=== PATIENT | male | born 1990 ===

== ENCOUNTER 2023-03-13 10:57 | Inpatient (IN) | payer SELFPAY ==
[2023-03-13] VITALS (10 sets, daily range): BP systolic 106–141; BP diastolic 48–87; PULSE 72–90; RESP 12–19; TEMP 36.7–37.2; O2SAT 96–98; BMI 21.9
[2023-03-13 11:49] LABS: Basophils % 0.2 %; Hematocrit 53.7 % (42.0-52.0); Hemoglobin 18.7 g/dL (11.7-16.6); Lymphocytes # 1.3 10^3/uL (0.8-4.8); Lymphocytes % 7.3 %; Mean Corpuscular HGB Conc 34.8 g/dL (30.0-36.0); Mean Corpuscular Hemoglobin 30.9 pg (28.0-34.0); Mean Corpuscular Volume 88.6 fl (80-94); Monocytes # 1.3 10^3/uL (0.2-0.9); Monocytes % 7.3 %; Neutrophils # 14.84 10^3/uL (1.8-7.7); Neutrophils % 84.5 %; Nucleated Red Blood Cells % 0 %; Platelet Count 449 10^3/cmm (130-400); Red Blood Count 6.06 10^6/uL (4.1-5.3); Red Cell Distribution Width 12.5 % (12.1-15.1); White Blood Count 17.6 10^3/uL (4.0-10.0)
[2023-03-13 12:05] LABS: Alanine Aminotransferase 26 U/L (0-41); Albumin Level 5.8 g/dL (3.5-5.2); Alkaline Phosphatase 83 U/L (40-130); Anion Gap 33.6 (5-19); Aspartate Amino Transferase 20 U/L (0-40); Blood Urea Nitrogen 40 mg/dL (6-20); Calcium 10.8 mg/dL (8.5-10.5); Carbon Dioxide 26 mmol/L (22-29); Chloride 83 mmol/L (98-107); Globulin 4.8 g/dL (1.3-4.6); Glomerular Filtration Rate 12.9 mL/min (90-130); Glucose 137 mg/dL (65-115); Osmolality Calculated 298 mOsm/kg (285-295); Potassium 4.6 mmol/L (3.5-5.1); Sodium 138 mmol/L (136-145); Total Bilirubin 0.7 mg/dL (0.15-1.2); Total Protein 10.6 g/dL (6.6-8.7)
--- NOTE | 2023-03-13 12:05 | ED_ITS ---
HPI - Nausea/Vomiting/Diarrhea General: Chief complaint: ER Hold Stated complaint: weakness, n/v Time Seen by Provider: 03/13/23 11:48 Source: patient Mode of arrival: ambulatory History of Present Illness: 32-year-old male presents emergency room complaining of dehydration . Chest Pain Coordinator line was used to communicate with the patient. He states he has not urinated or drink anything since last evening this morning he was at work it was felt like it was hot outside he said persistent nausea and vomiting. [facility] emergency room for same he denies hematochezia melena hematemesis coffee-ground emesis no dysuria urgency frequency denies chest pain mild epigastric discomfort intermittently. MD elicited complaint: nausea and vomiting Onset (ago): hour(s) Description of vomiting: watery Associated nausea: Yes Associated abdominal pain: Yes Location of pain: Epigastric Severity: mild Quality: cramping Exacerbating factors: none Relieving factors: none Associated symtoms: Reports fatigue, anorexia and nausea; Denies altered mental status, anxiety, bloating, change in vision, chest pain, cough, diaphoresis, decreased urine output, dizziness, dysuria, epistaxis, fecal incontinence, fevers/chills, headache(s), malaise, myalgias, numbness, palpitations, rash, short of breath, syncope, tenesmus, tinnitus or weakness Review of Systems Const: Reports: fatigue; Denies: malaise or diaphoresis Eyes: Denies: change in vision ENMT: Denies: tinnitus or epistaxis Card: Denies: chest pain, palpitations or syncope Resp: Denies: dyspnea, productive cough or non-productive cough GI: Reports: abdominal pain, nausea and vomiting; Denies: bloating or fecal incontinence : Denies: dysuria, urinary frequency or urinary urgency Skin/Breast: Denies: rash or pruritus Neuro: Denies: headache(s) or dizziness Psych: Denies: anxiety Physical Exam Const: EXAM LIMITATIONS: no altered mental status GENERAL APPEARANCE: cooperative and comfortable ORIENTATION/CONSCIOUSNESS: Yes awake, Yes oriented to person, Yes oriented to place and Yes oriented to time HENMT: COMMON NORMALS: normocephalic, atraumatic and hearing grossly normal bilaterally HEAD & SCALP: normocephalic and atraumatic Resp: COMMON NORMALS: normal respiratory effort, No retractions, No use of accessory muscles and clear to auscultation bilaterally AUSCULTATION: clear to auscultation bilaterally Cardio: COMMON NORMALS: regular rate, regular rhythm and No murmurs present (Cardio) RATE: regular rate RHYTHM: regular rhythm GI: COMMON NORMALS: Soft to palpation and No hepatosplenomegaly present AUSCULTATION: Yes normoactive bowel sounds PALPATION: Yes Soft to palpation, No Tenderness to palpation present (GI), No Guarding due to palpation present (GI) and Yes No hepatosplenomegaly present Extremity: COMMON NORMALS: normal to inspection, capillary refill normal, no clubbing, cyanosis or edema, no calf tenderness and no pedal edema Neuro: SENSORIUM/ORIENTATION: Yes oriented to person, Yes oriented to place and Yes oriented to time Skin: COMMON NORMALS: no rashes or lesions noted GENERAL SKIN EXAM: no rashes or lesions noted Course Vital Signs: Vital signs: Vital Signs Temperature 98.0 F 03/13/23 11:25 Pulse Rate 72 03/13/23 14:01 Respiratory Rate 16 03/13/23 14:01 Blood Pressure 128/86 03/13/23 14:01 Pulse Oximetry 97 03/13/23 14:01 Oxygen Delivery Me thod Room Air 03/13/23 14:01 MDM - Nausea/Vomiting/Diarrhea Medical Decision Making Acute kidney injury due to severe volume depletion. Patient given fluid boluses in the ER 2 L x 2 and then started on continuous hydration at 150 an hour normal saline. Potassium is stable discussed with hospitalist will admit. Medical Records I reviewed the patient's medical records. Lab Data I reviewed the patient's lab results. 03/13/23 11:30 03/13/23 11:30 Laboratory Results WBC 17.6 10^3/uL (4.0-10.0) H 03/13/23 11:30 RBC 6.06 10^6/uL (4.1-5.3) H 03/13/23 11:30 Hgb 18.7 g/dL (11.7-16.6) H 03/13/23 11:30 Hct 53.7 % (42.0-52.0) H 03/13/23 11:30 MCV 88.6 fl (80-94) 03/13/23 11:30 MCH 30.9 pg (28.0-34.0) 03/13/23 11:30 MCHC 34.8 g/dL (30.0-36.0) 03/13/23 11:30 RDW 12.5 % (12.1-15.1) 03/13/23 11:30 Plt Count 449 10^3/cmm (130-400) H 03/13/23 11:30 MPV 9.0 fL (7.4-10.4) 03/13/23 11:30 Neut % (Auto) 84.5 % 03/13/23 11:30 Lymph % (Auto) 7.3 % 03/13/23 11:30 Stephens % (Auto) 7.3 % 03/13/23 11:30 Eos % (Auto) 0.0 % 03/13/23 11:30 Baso % (Auto) 0.2 % 03/13/23 11:30 Neut # (Auto) 14.84 10^3/uL (1.8-7.7) H 03/13/23 11:30 Lymph # (Auto) 1.3 10^3/uL (0.8-4.8) 03/13/23 11:30 Stephens # (Auto) 1.3 10^3/uL (0.2-0.9) H 03/13/23 11:30 Eos # (Auto) 0.0 10^3/uL (0.0-0.8) 03/13/23 11:30 Baso # (Auto) 0.0 10^3/uL (0.0-0.1) 03/13/23 11:30 Nucleated RBC % (auto) 0 % 03/13/23 11:30 Nucleated RBCs # 0.0 /100WBC 03/13/23 11:30 Sodium 138 mmol/L (136-145) 03/13/23 11:30 Potassium 4.6 mmol/L (3.5-5.1) 03/13/23 11:30 Chloride 83 mmol/L (98-107) L 03/13/23 11:30 Carbon Dioxide 26 mmol/L (22-29) 03/13/23 11:30 Anion Gap 33.6 (5-19) H 03/13/23 11:30 BUN 40 mg/dL (6-20) H 03/13/23 11:30 Creatinine 5.2 mg/dL (0.7-1.2) H 03/13/23 11:30 GFR Calculation 12.9 mL/min (90-130) L 03/13/23 11:30 Glucose 137 mg/dL (65-115) H 03/13/23 11:30 Calculated Osmolality 298 mOsm/kg (285-295) H 03/13/23 11:30 Calcium 10.8 mg/dL (8.5-10.5) H 03/13/23 11:30 Total Bilirubin 0.7 mg/dL (0.15-1.2) 03/13/23 11:30 AST 20 U/L (0-40) 03/13/23 11:30 ALT 26 U/L (0-41) 03/13/23 11:30 Alkaline Phosphatase 83 U/L (40-130) 03/13/23 11:30 Total Protein 10.6 g/dL (6.6-8.7) H 03/13/23 11:30 Albumin 5.8 g/dL (3.5-5.2) H 03/13/23 11:30 Globulin 4.8 g/dL (1.3-4.6) H 03/13/23 11:30 Lipase 513 U/L (13-60) H 03/13/23 11:30 Discharge Plan Discharge Patient Disposition: Admitted As Inpatient Admit Provider: Paul Ji Clinical Impression: Acute kidney injury, Volume depletion Condition: Stable Coding Level of Care Code ED Clinical Research Management Associate for Lorenzo Bucio
[2023-03-13 12:26] LABS: Lipase 513 U/L (13-60)
[2023-03-13] MEDS: sodium chloride 0.9% 1,000 ML 999 ML IV ×2 (12:48→13:58)
[2023-03-13] MEDS: ondansetron 2 mg/ML SDV 2 mL 4 MG IVP (12:48)
[2023-03-13] MEDS: sodium chloride 0.9% 1,905.09 ML 1905.09 ML IV (15:50)
--- NOTE | 2023-03-13 16:21 | US_ITS ---
WS: [id number] ULTRASOUND RENAL TECHNIQUE: Ultrasound examination of both kidneys. CLINICAL INFORMATION: [facility] COMPARISON: None. FINDINGS: RIGHT: Right kidney is normal in size and appearance. Echogenicity: Normal. Cortical thickness: 1.2 cm; Normal. Hydronephrosis: None. Perinephric fluid: None. Right kidney measures: 11.6 cm x 5.0 cm x 4.5 cm. LEFT: Left kidney is normal in size and appearance. Echogenicity: Normal. Cortical thickness: 1.5 cm; Normal. Hydronephrosis: None. Perinephric fluid: None. Left kidney measures: 9.8 cm x 5.0 cm x 4.3 cm. Normal visualized aorta. US/US renal BI* [id number] IMPRESSION: 1. No hydronephrosis in either kidney. 2. Kidney is normal in appearance. 3. Bladder is decompressed.
--- NOTE | 2023-03-13 16:24 | P.HP_ITS ---
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 Patient was started on bolus IV fluid in the ER. Review of Systems General: Reports: 10 or more systems reviewed and unremarkable except in HPI and below Const: Denies: fever(s), chills, body aches, change in appetite or diaphoresis Card: Denies: palpitations, edema, swelling of feet/ankles, dyspnea on exertion, orthopnea or leg pain with exertion Resp: Denies: dyspnea, productive cough, wheezing or pain on inspiration GI: Reports: abdominal pain, nausea and vomiting; Denies: diarrhea or constipation : Denies: flank pain or difficulty urinating Musc: Denies: back pain, extremity pain or extremity swelling Neuro: Denies: headache(s), difficulty walking or confusion Medications/Allergies Home Medications Medication Instructions Recorded Confirmed Last Taken Type No Known Home Medications 03/13/23 03/13/23 Unknown History Allergies Allergy/AdvReac Type Severity Reaction Status Date / Time No Known Allergies Allergy Verified 03/13/23 11:25 Vitals/I&O/Wt Last Vital Signs Temp 98.4 F 03/13/23 15:56 Pulse 74 03/13/23 15:52 Resp 16 03/13/23 15:52 BP 117/71 03/13/23 15:52 Pulse Ox 97 03/13/23 15:52 O2 Del Method Room Air 03/13/23 15:52 03/13/23 03/13/23 03/13/23 06:59 14:59 22:59 Intake Total 1000 / 1000 Balance 1000 / 1000 Weight last 48 hrs Weight 63.503 kg Physical Exam Const: COMMON NORMALS: patient oriented x3 HENMT: COMMON NORMALS: normocephalic and atraumatic HEAD & SCALP: normocephalic and atraumatic Resp: COMMON NORMALS: clear to auscultation bilaterally AUSCULTATION: clear to auscultation bilaterally Cardio: COMMON NORMALS: regular rate, regular rhythm, S1 normal heart sound present, S2 normal heart sound present, No gallops present (Cardio), No murmurs present (Cardio), No rub (Cardio) and Peripheral pulses 2+ throughout RATE: regular rate RHYTHM: regular rhythm HEART SOUNDS: S1 normal heart sound present and S2 normal heart sound present PERIPHERAL PULSES: Peripheral pulses 2+ throughout GI: COMMON NORMALS: Normal to inspection, nondistended, normoactive bowel sounds present, Soft to palpation, non-tender, No hepatosplenomegaly present and no masses AUSCULTATION: Yes normoactive bowel sounds PALPATION: Yes Soft t o palpation and Yes No hepatosplenomegaly present RECTAL EXAM: Yes deferred : COMMON NORMALS: Yes no CVA tenderness BLADDER/KIDNEY EXAM: Yes no CVA tenderness Back/Pelvis: COMMON NORMALS: no CVA tenderness Extremity: COMMON NORMALS: no clubbing, cyanosis or edema and no pedal edema Neuro: COMMON NORMALS: patient oriented x3 Data 03/13/23 11:30 03/13/23 11:30 A&P Assessment and plan (1) Acute renal failure: (2) Dehydration: (3) Leukocytosis: (4) Elevated lipase: Plan 32 year old male with no significant past medical history came in today with chief complaint of left upper quadrant mild abdominal discomfort nausea vomiting, no urine output since yesterday night, 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 Assessment: Acute kidney injury : Likely prerenal DILLON secondary to severe dehydration. Follow renal ultrasound Random urine sodium Random urine creatinine Random urine total protein FENA UPCR Urinalysis Monitor intake output charting Avoid nephrotoxic's Monitor BMP Currently on aggressive IV hydration with normal saline 150 cc an hour Initial plan was to place Polanco catheter, but patient is currently wants to avoid Polanco catheter. Increased anion gap metabolic acidosis: Secondary to acute kidney injury Continue IV hydration Monitor BMP Leukocytosis: Monitor CBC for now Dehydration: Continue IV fluids Elevated lipase: Follow repeat lipase Possible CT abdomen and pelvis without contrast CODE STATUS: Full code DVT prophylaxis on subcu heparin Attestations Medical Necessity Statement*: Patient is to be in hospital management D[facility]. Anticipated length of stay greater THEN 2 midnightS Coding Level of Care Code Acute Code for Chg Fwd Diagnoses Acute renal failure N17.9 Dehydration E86.0 Leukocytosis D72.829 Elevated lipase R74.8
[2023-03-13] MEDS: sodium chloride 0.9% 1,000 ML 150 ML IV (17:50)
[2023-03-13] MEDS: heparin 5,000 unit/mL INJ 1 mL 5000 UNIT SUBCUT (17:51)
[2023-03-14] VITALS: BP 110/54; PULSE 64; RESP 16; TEMP 36.9; O2SAT 96
[2023-03-14] MEDS: sodium chloride 0.9% 1,000 ML 150 ML IV ×2 (00:14→07:00)
[2023-03-14 04:30] LABS: Basophils % 0.3 %; Eosinophils # 0.1 10^3/uL (0.0-0.8); Eosinophils % 0.5 %; Hematocrit 40.5 % (42.0-52.0); Hemoglobin 13.4 g/dL (11.7-16.6); Lymphocytes # 3.9 10^3/uL (0.8-4.8); Lymphocytes % 33.4 %; Mean Corpuscular HGB Conc 33.1 g/dL (30.0-36.0); Mean Corpuscular Hemoglobin 30.3 pg (28.0-34.0); Mean Corpuscular Volume 91.6 fl (80-94); Mean Platelet Volume 9.2 fL (7.4-10.4); Monocytes % 8.8 %; Neutrophils # 6.62 10^3/uL (1.8-7.7); Neutrophils % 56.4 %; Nucleated Red Blood Cells % 0 %; Platelet Count 314 10^3/cmm (130-400); Red Blood Count 4.42 10^6/uL (4.1-5.3); Red Cell Distribution Width 12.7 % (12.1-15.1); White Blood Count 11.7 10^3/uL (4.0-10.0)
[2023-03-14 04:45] LABS: Alanine Aminotransferase 18 U/L (0-41); Albumin Level 3.8 g/dL (3.5-5.2); Alkaline Phosphatase 50 U/L (40-130); Anion Gap 11.1 (5-19); Aspartate Amino Transferase 19 U/L (0-40); Blood Urea Nitrogen 29 mg/dL (6-20); Calcium 8.7 mg/dL (8.5-10.5); Carbon Dioxide 27 mmol/L (22-29); Chloride 102 mmol/L (98-107); Creatine Phosphokinase 312 U/L (39-308); Globulin 2.8 g/dL (1.3-4.6); Glomerular Filtration Rate 54.2 mL/min (90-130); Glucose 91 mg/dL (65-115); Magnesium 2.2 mg/dL (1.7-2.3); Osmolality Calculated 287 mOsm/kg (285-295); Phosphorus 2.1 mg/dL (2.5-4.5); Potassium 4.1 mmol/L (3.5-5.1); Sodium 136 mmol/L (136-145); Total Bilirubin 0.8 mg/dL (0.15-1.2); Total Protein 6.6 g/dL (6.6-8.7)
[2023-03-14] MEDS: heparin 5,000 unit/mL INJ 1 mL 5000 UNIT SUBCUT (04:57)
[2023-03-14 04:58] VITALS: BP 98/54; PULSE 55; RESP 16; TEMP 36.4; O2SAT 96
[2023-03-14 06:00] VITALS: PULSE 63
[2023-03-14 08:00] VITALS: BP 113/64; PULSE 73; RESP 16; O2SAT 98
--- NOTE | 2023-03-14 11:44 | P.DS_ITS ---
Discharge Providers Date of Admission: 03/13/23 12:54 Date of Discharge: March 14, 2023 Attending Provider at Admission: Paul Ji MD Attending Provider at Discharge: Luis Carlos Ramos MD Diagnoses at Discharge Discharge Diagnosis (1) Acute renal failure: Status: Acute (2) Dehydration: Status: Acute (3) Leukocytosis: Status: Acute (4) Elevated lipase: Status: Acute Reason for Visit Reason for Visit: weakness, n/v Hospital Course Hospital Course Sancho presented to the hospital with complaints of feeling overheated, and dehydrated. He had some nausea, and had not been drinking well. He was found to be in acute kidney failure, with creatinine of 5.2. Lipase was also elevated at 513. With hydration, symptomatology all went away. Renal ultrasound demonstrated no obstruction. The following day his creatinine is 1.5, CK3 12. He was able to eat normally, has had no fever, had no abdominal pain, and wished to go home. With this in mind he was discharged home with instructions to avoid heat, increase hydration, visit his primary care provider with a BMP in approximately 1 week. He was instructed not to take any anti-inflammatory drugs. He was given an opportunity to ask questions, and agreed with plan. Physical Exam Narrative: General exam is no distress Neck is supple Cardiovascular regular rate and rhythm, no murmur Lungs clear Abdomen is soft, nontender Extremities no cyanosis, edema Discharge Data Studies Completed and Pending Completed Studies During Hospitalization Category Date Time Status US renal BI* [id number] Routine Ultrasound 03/13/23 16:21 Completed Pending at discharge Category Date Time Status Complete Blood Count w/Auto AM LABS Lab 03/15/23 04:00 Ordered Complete Blood Count w/Auto AM LABS Lab 03/16/23 04:00 Ordered Comprehensive Metabolic Panel AM LABS Lab 03/15/23 04:00 Ordered Comprehensive Metabolic Panel AM LABS Lab 03/16/23 04:00 Ordered Creatinine Urine, Random Routine Lab 03/13/23 16:21 Ordered Urinalysis Stat Lab 03/13/23 11:03 Ordered Urine Protein Random Routine Lab 03/13/23 16:21 Ordered Urine Random Sodium Routine Lab 03/13/23 16:21 Ordered Radiology Impressions Renal Ultrasound 03/13/23 16:21 IMPRESSION: 1. No hydronephrosis in either kidney. 2. Kidney is normal in appearance. 3. Bladder is decompressed. Laboratory Results WBC 11.7 10^3/uL (4.0-10.0) H 03/14/23 03:42 RBC 4.42 10^6/uL (4.1-5.3) 03/14/23 03:42 Hgb 13.4 g/dL (11.7-16.6) 03/14/23 03:42 Hct 40.5 % (42.0-52.0) L 03/14/23 03:42 MCV 91.6 fl (80-94) 03/14/23 03:42 MCH 30.3 pg (28.0-34.0) 03/14/23 03:42 MCHC 33.1 g/dL (30.0-36.0) 03/14/23 03:42 RDW 12.7 % (12.1-15.1) 03/14/23 03:42 Plt Count 314 10^3/cmm (130-400) D 03/14/23 03:42 MPV 9.2 fL (7.4-10.4) 03/14/23 03:42 Neut % (Auto) 56.4 % 03/14/23 03:42 Lymph % (Auto) 33.4 % 03/14/23 03:42 Mclennan % (Auto) 8.8 % 03/14/23 03:42 Eos % (Auto) 0.5 % 03/14/23 03:42 Baso % (Auto) 0.3 % 03/14/23 03:42 Neut # (Auto) 6.62 10^3/uL (1.8-7.7) 03/14/23 03:42 Lymph # (Auto) 3.9 10^3/uL (0.8-4.8) 03/14/23 03:42 Mclennan # (Auto) 1.0 10^3/uL (0.2-0.9) H 03/14/23 03:42 Eos # (Auto) 0.1 10^3/uL (0.0-0.8) 03/14/23 03:42 Baso # (Auto) 0.0 10^3/uL (0.0-0.1) 03/14/23 03:42 Nucleated RBC % (auto) 0 % 03/14/23 03:42 Nucleated RBCs # 0.0 /100WBC 03/14/23 03:42 Sodium 136 mmol/L (136-145) 03/14/23 03:42 Potassium 4.1 mmol/L (3.5-5.1) 03/14/23 03:42 Chloride 102 mmol/L (98-107) 03/14/23 03:42 Carbon Dioxide 27 mmol/L (22-29) 03/14/23 03:42 Anion Gap 11.1 (5-19) 03/14/23 03:42 BUN 29 mg/dL (6-20) H 03/14/23 03:42 Creatinine 1.5 mg/dL (0.7-1.2) H 03/14/23 03:42 GFR Calculation 54.2 mL/min (90-130) L 03/14/23 03:42 Glucose 91 mg/dL (65-115) 03/14/23 03:42 Calculated Osmolality 287 mOsm/kg (285-295) 03/14/23 03:42 Calcium 8.7 mg/dL (8.5-10.5) 03/14/23 03:42 Phosphorus 2.1 mg/dL (2.5-4.5) L 03/14/23 03:42 Magnesium 2.2 mg/dL (1.7-2.3) 03/14/23 03:42 Total Bilirubin 0.8 mg/dL (0.15-1.2) 03/14/23 03:42 AST 19 U/L (0-40) 03/14/23 03:42 ALT 18 U/L (0-41) 03/14/23 03:42 Alkaline Phosphatase 50 U/L (40-130) 03/14/23 03:42 Creatine Kinase 312 U/L (39-308) H 03/14/23 03:42 Total Protein 6.6 g/dL (6.6-8.7) D 03/14/23 03:42 Albumin 3.8 g/dL (3.5-5.2) 03/14/23 03:42 Globulin 2.8 g/dL (1.3-4.6) 03/14/23 03:42 Lipase 513 U/L (13-60) H 03/13/23 11:30 Vitals Last Vital Signs Temp 97.6 F 03/14/23 04:58 Pulse 63 03/14/23 06:00 Resp 16 03/14/23 04:58 BP 98/54 03/14/23 04:58 Pulse Ox 96 03/14/23 04:58 O2 Del Method Room Air 03/13/23 16:41 Discharge Plan Discharge Patient Disposition: Home Condition: Stable Prescriptions: No Action No Known Home Medications Discharge Orders: Discharge Order (Routine); Ordered 03/14/23 Ordered By: Luis Carlos Ramos Referrals: [facility] [Other] - 4-7 days (Clinic will reach out to you to schedule a hospital follow up once discharged from the hospital) Discharge Diet: Regular Discharge Activity: Increase activity as tolerated Patient Instructions: Dehydration (GEN), Opioid Safety Activity Restrictions/Additional Instructions: Monitor drugs Encourage fluids Follow-up with primary care provider in approximately 1 week with BMP at that time Avoid excessive heat/heat exhaustion Discharge Attestations Time Spent in Discharge Care*: greater than 30 min Quality Metrics Clinical Quality Measures [ No reported AMI, CVA or VTE this stay] Coding Level of Care Code 18544 Total time (in minutes) for Discharge: 32 Diagnoses Acute renal failure N17.9 Dehydration E86.0 Leukocytosis D72.829 Elevated lipase R74.8
[2023-03-14 12:00] VITALS: BP 102/54; PULSE 69; RESP 14; O2SAT 95
[2023-03-14 14:45] VITALS: BP 102/54; PULSE 69; RESP 14; O2SAT 95
== END 2023-03-14 14:45 | disposition home or self-care (01) | DRG 683 ==
LOC: ER 12:29 → ER IP 14:28 → MEDSURG 15:49
PROVIDERS: Physician Assistant; Admitting Provider Internal Medicine; Emergency Provider Family Medicine; Visit Provider Internal Medicine
DX: N17.9 Acute kidney failure, unspecified (principal); E87.20 Acidosis, unspecified; E86.0 Dehydration
CPT/HCPCS: 36415; 76770; 80053; 82550; 83690; 83735; 84100; 85025; 96361; 96372; 96374; 99285; J1644; J2405; J7030